=== PATIENT | female | born 1950 | race Caucasian/White ===

== ENCOUNTER 2020-06-30 16:17 | Observation (INO) ==
[2020-06-30 17:56] LABS: ALANINE AMINOTRANSFERASE 26 Units/L (12-78); ALKALINE PHOSPHATASE 86 Units/L (46-116); ASPARTATE AMINO TRANSFERASE 17 Units/L (15-37); BLOOD UREA NITROGEN 15 mg/dL (7-18); CALCIUM 8.3 mg/dL (8.5-10.1); CARBON DIOXIDE 25.4 mmol/L (21-32); CHLORIDE 109 mmol/L (98-107); COR CA(FOR HYPOALB) 9.1 mg/dL (8.5-10.1); COR NA(FOR HYPERGLY) 144 mmol/L (136-145); SODIUM 143 mmol/L (136-145); TOTAL PROTEIN 6.6 g/dL (6.4-8.2); eGFR NON BLACK RACES 58 (>60)
--- NOTE | 2020-06-30 18:03 | RAD ---
HISTORY:Abdominal painStudy:Single view abdomenComparison:NoneFindings:Bowel gas pattern is nonobstructive. There is moderate retained stool in the colon. Cholecystectomy clips noted. No renal calculi identified. There are degenerative changes of the lumbosacral spine.IMPRESSION:1. No acute abnormality identified.Electronically signed by: KEVEN FRAUSTO (Jun 30, 2020 18:01:15)
[2020-06-30 18:04] LABS: BASOPHILS % (AUTO) 0.5 % (0.2-1.0); EOSINOPHILS % (AUTO) 0.6 % (0.9-2.9); HEMATOCRIT 25.2 % (36.0-47.0); HEMOGLOBIN 8.4 g/dL (12.0-16.0); LYMPHOCYTES # (AUTO) 1.4 X10^3/uL (1.3-2.9); LYMPHOCYTES % (AUTO) 19.4 % (21.0-51.0); MEAN CORPUSCULAR HGB CONC 33.2 g/dL (33.0-35.0); MEAN CORPUSCULAR VOLUME 87.4 fL (80.0-100.0); MEAN PLATELET VOLUME 9.3 fL (7.4-11.0); MONOCYTES # (AUTO) 0.6 x10^3/uL (0.3-0.8); MONOCYTES % (AUTO) 8.4 % (0.0-13.0); NEUTROPHILS # (AUTO) 5.3 x10^3/uL (2.2-4.8); NEUTROPHILS % (AUTO) 71.1 % (42.0-75.0); PLATELET COUNT 355 X10^3/uL (150.0-450.0); RED BLOOD COUNT 2.88 X10^6/uL (3.5-5.4); RED CELL DISTRIBUTION WIDTH 15.1 % (11.6-16.5); WHITE BLOOD COUNT 7.4 X10^3/uL (3.6-10.0)
[2020-06-30 18:13] LABS: ERYTHROCYTE SEDIMENTATION RATE 93 MM/HOUR (0-20)
[2020-06-30] MEDS ORDERED: NS 1000 ML 1,000 ML ONE (19:08)
[2020-06-30] MEDS ORDERED: ZOFRAN INJ 4 MG VIAL ONE (19:11)
[2020-06-30] MEDS ORDERED: MORPHINE SULFATE INJ 2 MG INJ ONE (19:11)
[2020-06-30] MEDS: NS 1000 ML 1,000 ML IV SCH (19:44)
[2020-06-30] MEDS: MORPHINE SULFATE INJ 2 MG INJ IVP PRN (19:45)
[2020-06-30] MEDS: ZOFRAN INJ 4 MG VIAL IVP PRN (19:45)
[2020-06-30] MEDS: PROTONIX INJ 40 MG VIAL IVP SCH (20:18)
[2020-06-30] MEDS: PEPCID 20 MG IV PREMIX* 20 MG/50 ML BAG IV SCH (20:18)
[2020-06-30 23:58] LABS: BILIRUBIN,URINE NEGATIVE (NEGATIVE); BLOOD/HEMOGLOBIN,URINE 1+ (NEGATIVE); GLUCOSE, URINE NEGATIVE (NEGATIVE); KETONES,URINE NEGATIVE (NEGATIVE); LEUKOCYTE ESTERASE ,URINE 2+ (NEGATIVE); NITRITES,URINE NEGATIVE (NEGATIVE); PROTEIN,URINE 1+ (NEGATIVE); UROBILINOGEN,URINE NORMAL (NORMAL)
[2020-07-01 00:17] LABS: APPEARANCE,URINE CLEAR (CLEAR); BACTERIA,URINE TRACE /HPF (NEGATIVE); COLOR,URINE YELLOW (YELLOW); SQUAMOUS EPITHELIAL CELL,UR FEW /HPF (NEGATIVE)
[2020-07-01] MEDS: NS 1000 ML 1,000 ML IV SCH ×3 (01:31→19:11)
[2020-07-01] MEDS: ZOFRAN INJ 4 MG VIAL IVP PRN (01:31)
[2020-07-01] MEDS: MORPHINE SULFATE INJ 2 MG INJ IVP PRN ×4 (01:31→20:42)
[2020-07-01 06:04] LABS: ALANINE AMINOTRANSFERASE 21 Units/L (12-78); ALBUMIN 2.6 g/dL (3.4-5.0); ALKALINE PHOSPHATASE 73 Units/L (46-116); ASPARTATE AMINO TRANSFERASE 16 Units/L (15-37); BASOPHILS % (AUTO) 0.5 % (0.2-1.0); BLOOD UREA NITROGEN 15 mg/dL (7-18); CALCIUM 8.2 mg/dL (8.5-10.1); CARBON DIOXIDE 24.1 mmol/L (21-32); CHLORIDE 110 mmol/L (98-107); COR CA(FOR HYPOALB) 9.3 mg/dL (8.5-10.1); CREATININE 0.93 mg/dL (0.55-1.02); EOSINOPHILS # (AUTO) 0.1 x10^3/uL (0.0-0.2); HEMATOCRIT 23.6 % (36.0-47.0); HEMOGLOBIN 7.7 g/dL (12.0-16.0); LYMPHOCYTES # (AUTO) 1.6 X10^3/uL (1.3-2.9); LYMPHOCYTES % (AUTO) 26.9 % (21.0-51.0); MEAN CORPUSCULAR HEMOGLOBIN 28.4 pg (27.0-34.0); MEAN CORPUSCULAR HGB CONC 32.6 g/dL (33.0-35.0); MEAN CORPUSCULAR VOLUME 87.2 fL (80.0-100.0); MEAN PLATELET VOLUME 8.9 fL (7.4-11.0); MONOCYTES # (AUTO) 0.6 x10^3/uL (0.3-0.8); MONOCYTES % (AUTO) 9.3 % (0.0-13.0); NEUTROPHILS # (AUTO) 3.7 x10^3/uL (2.2-4.8); NEUTROPHILS % (AUTO) 61.3 % (42.0-75.0); PLATELET COUNT 303 X10^3/uL (150.0-450.0); RED BLOOD COUNT 2.71 X10^6/uL (3.5-5.4); RED CELL DISTRIBUTION WIDTH 15.5 % (11.6-16.5); SODIUM 143 mmol/L (136-145); TOTAL PROTEIN 5.8 g/dL (6.4-8.2); eGFR NON BLACK RACES > 60 (>60)
[2020-07-01 06:48] VITALS: BMI 29.2
[2020-07-01] MEDS: PROTONIX INJ 40 MG VIAL IVP SCH ×2 (08:22→20:42)
[2020-07-01] MEDS: PEPCID 20 MG IV PREMIX* 20 MG/50 ML BAG IV SCH ×2 (08:22→20:42)
[2020-07-01] MEDS: INVANZ INJ 1 GM VIAL 1 GM in NS 100 ML IV + SPIKE MINIBAG* 100 ML IV SCH (11:01)
--- NOTE | 2020-07-01 14:14 | DR.H&P ---
H&P - History & Physical for Day of: H&P Date: 06/30/20 - Chief Complaint Chief Complaint: BLOOD IN STOOL, SOB, WEAKNESS, NAUSEA - History of Present Illness History of Present Illness: IS A 70 YEAR OLD PATIENT OF [facility]. SHE PRESENTED A DIRECT ADMISSION TO THE HOSPITAL UNDER OUR SERVICES DUE TO COMPLAINTS OF PASSING BLOOD IN THE STOOL X 1 WEEK. PATIENT REPORTS THAT STOOL HAD BRIGHT RED BLOOD INITIALLY, BUT IS NOW BLACK. SHE DENIES ABDOMINAL PAIN, BUT DOES ADMIT TO SHORTNESS OF BREATH, WEAKNESS, AND NAUSEA WITHOUT VOMITING. HER PMH INCLUDES: GERD, PUD, RHEUMATOID ARTHRITIS, HYPOTHYROIDISM, ANXIETY, DEPRESSION, APPENDECTOMY, CHOLECYSTECTOMY, HYSTERECTOMY, AND NASAL SURGERY. SHE IS A CURRENT EVERYDAY SMOKER. ON ARRIVAL TO THE HOSPITAL, VITALS WERE 98.7-98-16-100%-100/55. LABS WERE OBTAINED. ABNORMAL LAB VALUES INCLUDE THE FOLLOWING: RBC 2.88, HGB 8.4, HCT 25.2, CHLORIDE 109, GLUCOSE 124, CALCIUM 8.3, CRP 7.70, ALBUMIN 3.0. URINALYSIS WAS OBTAINED AND REVEALED: WBC 30-50, RBC 3-5, LEUKOCYTES 2+, BACTERIA TRACE, PROTEIN 1+. A URINE CULTURE WAS SET UP. COVID-19 NEGATIVE. A KUB WAS OBTAINED AND WAS NEGATIVE FOR ACUTE ABNORMALITY. SHE WAS STARTED ON NORMAL SALINE AT 125 ML/HR, PEPCID 20MG IV Q12H, PROTONIX 40MG IV BID, ZOFRAN 4MG IV Q4H PRN NAUSEA, MORPHINE 2MG IV Q4H PRN PAIN, AND INVANZ 1G IV DAILY FOR UTI. WE WILL CONSULT WITH FOR POSSIBLE ENDOSCOPY. OTHERWISE, WE PLAN TO FOLLOW UP WITH AM LABS AND CONTINUE TO MONITOR. TIME SPENT ON CLINICAL ASSESSMENT, REVIEWING LABS AND IMAGING, DECISION MAKING, DOCUMENTATION WAS GREATER THAN 75 MINUTES. - Past Medical History Past Medical History: Anxiety, Arthritis, Depression, GERD, Hypothyroidism, PUD Additional Medical History: LUPUS - Past Surgical History Surgical History: Appendectomy, Cholecystectomy, Hysterectomy - Family History Family Medical History: Diabetes Mellitus, Cancer, [place], Coronary Artery Disease, Sudden Cardiac , Hypertension - Social History Does patient currently use any type of tobacco product: Yes Have you used tobacco products in the last 12 months: Yes Type of Tobacco Use: Cigarettes Alcohol Use: None Drug Use: None - Medications Home Medications: nitrofurantoin [From Macrobid] Allergy (Intermediate, Verified 06/30/20 19:30) NAUSEA CONTINUE taking the following medications biotin 5 mg PO DAILY 07/01/20 [History] dexlansoprazole [Dexilant] 60 mg PO DAILY 07/01/20 [History] diclofenac sodium 2 g TOPICAL QID 07/01/20 [History] famotidine 20 mg PO BID 07/01/20 [History] furosemide [Lasix] 40 mg PO DAILY PRN 07/01/20 [History] hydrocodone-acetaminophen 1 tab PO Q6H PRN 07/01/20 [History] levothyroxine 88 mcg PO DAILY 07/01/20 [History] montelukast 10 mg PO DAILY 07/01/20 [History] morphine 15 mg PO Q8H PRN 07/01/20 [History] phentermine [Adipex-P] 37.5 mg PO DAILY 07/01/20 [History] potassium chloride 10 meq PO DAILY 07/01/20 [History] prednisone 5 mg PO DAILY PRN 07/01/20 [History] pregabalin 50 mg PO BID 07/01/20 [History] promethazine [Phenergan] 25 mg PO Q6H PRN 07/01/20 [History] tofacitinib [Xeljanz XR] 11 mg PO DAILY 07/01/20 [History] topiramate 100 mg PO BID 07/01/20 [History] venlafaxine 150 mg PO DAILY 07/01/20 [History] - Review of Systems Constitutional: Weakness. denies: Fever, Chills Eyes: No Symptoms Reported ENT: No Symptoms Reported Respiratory: No Symptoms Reported, Shortness of Breath, SOB with Excertion Cardiovascular: No Symptoms Reported Gastrointestinal: No Symptoms Reported, See HPI, Nausea Genitourinary: No Symptoms Reported Musculoskeletal: No Symptoms Reported Skin: No Symptoms Reported Neurological: Weakness - Physical Exam Vital Signs: Temperature 99.0 F Pulse Rate [Left Brachial] 93 Respiratory Rate 18 Blood Pressure [Left Arm] 117/57 O2 Sat by Pulse Oximetry 97 Oriented: Normal Eyes: Normal Ear: Normal Nose: Normal Throat: Normal Respiratory: Diminished Throughout Cardiovascular: Normal. negative: S3, S4, Murmur : Normal Auscultation: Bowel Sounds: Normal Palpation: Normal Tenderness: Normal Skin: Normal Musculoskeletal: Normal Psychiatric: Normal Mood Description: Calm Affect: Normal Speech Pattern: Clear - Assessment/Plan (1) GI bleed Qualifiers: GI bleed type/associated pathology: unspecified gastrointestinal hemorrhage type Qualified Code(s): K92.2 - Gastrointestinal hemorrhage, unspecified Status: Acute (2) Anemia Qualifiers: Anemia type: iron deficiency Iron deficiency anemia type: chronic blood loss Qualified Code(s): D50.0 - Iron deficiency anemia secondary to blood loss (chronic) Status: Acute Plan: ADMIT, GASTOENTEROLOGY CONSULT, NORMAL SALINE AT 125 ML/HR, PEPCID 20MG IV Q12H, PROTONIX 40MG IV BID, ZOFRAN 4MG IV Q4H PRN NAUSEA, MORPHINE 2MG IV Q4H PRN PAIN, AND INVANZ 1G IV DAILY FOR UTI. MONITOR H&H - Allergies Allergies/Adverse Reactions: Allergies Allergy/AdvReac Type Severity Reaction Status Date / Time nitrofurantoin Allergy Intermediate NAUSEA Verified 06/30/20 19:30 [From Macrobid]
[2020-07-01 16:54] LABS: HEMATOCRIT 22.2 % (36.0-47.0); HEMOGLOBIN 7.4 g/dL (12.0-16.0)
--- NOTE | 2020-07-01 18:12 | DR.CONSULT ---
Consult - Consultation for Day of: Date: 07/01/20 - Chief Complaint Chief Complaint: Patient referred for GI Beed and abdominal pain, Patient with complaints of nausea, epigastric pain and melena. - History of Present Illness History of Present Illness: Patient is a 70 yo female who was referred for GI Beed and abdominal pain, Patient with complaints of nausea, epigastric pain and melena. Patient denies dysphagia, dyspepsia, vomiting, constipation, diarrhea. Patient states she was having hematochezia prior melena. Last colon was a few years ago in [facility] 3 polyps. Hgb 7.7, Hct 23.6, Plt 303, BUN 15, Creatinine 0.93, T. Bili 0.20, AST 16, ALT 21, ALP 73 - Past Surgical History Surgical History: Appendectomy, Cholecystectomy, Hysterectomy - Family History Family Medical History: Diabetes Mellitus, Cancer, [place], Coronary Artery Disease, Sudden Cardiac , Hypertension - Social History Does patient currently use any type of tobacco product: Yes Have you used tobacco products in the last 12 months: Yes Type of Tobacco Use: Cigarettes Alcohol Use: None Drug Use: None - Medications Home Medications: nitrofurantoin [From Macrobid] Allergy (Intermediate, Verified 06/30/20 19:30) NAUSEA CONTINUE taking the following medications biotin 5 mg PO DAILY 07/01/20 [History] dexlansoprazole [Dexilant] 60 mg PO DAILY 07/01/20 [History] diclofenac sodium 2 g TOPICAL QID 07/01/20 [History] famotidine 20 mg PO BID 07/01/20 [History] furosemide [Lasix] 40 mg PO DAILY PRN 07/01/20 [History] hydrocodone-acetaminophen 1 tab PO Q6H PRN 07/01/20 [History] levothyroxine 88 mcg PO DAILY 07/01/20 [History] montelukast 10 mg PO DAILY 07/01/20 [History] morphine 15 mg PO Q8H PRN 07/01/20 [History] phentermine [Adipex-P] 37.5 mg PO DAILY 07/01/20 [History] potassium chloride 10 meq PO DAILY 07/01/20 [History] prednisone 5 mg PO DAILY PRN 07/01/20 [History] pregabalin 50 mg PO BID 07/01/20 [History] promethazine [Phenergan] 25 mg PO Q6H PRN 07/01/20 [History] tofacitinib [Xeljanz XR] 11 mg PO DAILY 07/01/20 [History] topiramate 100 mg PO BID 07/01/20 [History] venlafaxine 150 mg PO DAILY 07/01/20 [History] - Review of Systems Gastrointestinal: Nausea, Abdominal Pain (epigastric), Melena. denies: Vomiting, Diarrhea, Constipation, Hematochezia - Physical Exam Vital Signs: Temperature 98.6 F Pulse Rate [Left Brachial] 85 Respiratory Rate 18 Blood Pressure [Left Arm] 102/54 O2 Sat by Pulse Oximetry 94 Oriented: Normal Eyes: Normal Ear: Normal Nose: Normal Throat: Normal Respiratory: Clear Throughout Cardiovascular: Normal Auscultation: Bowel Sounds: Normal Palpation: Normal, Other (no distention). negative: Spleen Enlarged, Liver Enlarged, Mass Pulsatile Tenderness: Epigastric Skin: Normal Musculoskeletal: Normal Psychiatric: Normal Mood Description: Calm Affect: Normal Speech Pattern: Clear, Appropriate - Plan Plan: Assessment. 1. Anemia, Melena r/o upper GI Loss. Plan. 1. Protonix IV, Monitor Hgb, Transfuse as needed, EGD on , Hemoccult. Plan reviewed with Dr. Guerrero - Allergies Allergies/Adverse Reactions: Allergies Allergy/AdvReac Type Severity Reaction Status Date / Time nitrofurantoin Allergy Intermediate NAUSEA Verified 06/30/20 19:30 [From Macrobid]
[2020-07-01] MEDS: NICOTINE PATCH TD SCH (22:00)
[2020-07-02] MEDS: MORPHINE SULFATE INJ 2 MG INJ IVP PRN ×2 (00:22→04:30)
[2020-07-02] MEDS: NS 1000 ML 1,000 ML IV SCH ×2 (03:00→18:10)
[2020-07-02] MEDS: ZOFRAN INJ 4 MG VIAL IVP PRN ×2 (05:19→21:33)
[2020-07-02 06:19] LABS: BASOPHILS % (AUTO) 0.5 % (0.2-1.0); EOSINOPHILS # (AUTO) 0.1 x10^3/uL (0.0-0.2); EOSINOPHILS % (AUTO) 1.9 % (0.9-2.9); HEMATOCRIT 20.1 % (36.0-47.0); LYMPHOCYTES # (AUTO) 1.3 X10^3/uL (1.3-2.9); LYMPHOCYTES % (AUTO) 23.3 % (21.0-51.0); MEAN CORPUSCULAR HEMOGLOBIN 28.7 pg (27.0-34.0); MEAN CORPUSCULAR HGB CONC 33.3 g/dL (33.0-35.0); MEAN CORPUSCULAR VOLUME 86.1 fL (80.0-100.0); MEAN PLATELET VOLUME 8.8 fL (7.4-11.0); MONOCYTES # (AUTO) 0.6 x10^3/uL (0.3-0.8); MONOCYTES % (AUTO) 10.2 % (0.0-13.0); NEUTROPHILS # (AUTO) 3.6 x10^3/uL (2.2-4.8); NEUTROPHILS % (AUTO) 64.1 % (42.0-75.0); PLATELET COUNT 267 X10^3/uL (150.0-450.0); RED BLOOD COUNT 2.33 X10^6/uL (3.5-5.4); RED CELL DISTRIBUTION WIDTH 14.9 % (11.6-16.5); WHITE BLOOD COUNT 5.6 X10^3/uL (3.6-10.0)
[2020-07-02 06:21] LABS: HEMOGLOBIN 6.7 g/dL (12.0-16.0)
[2020-07-02 06:26] LABS: ALANINE AMINOTRANSFERASE 22 Units/L (12-78); ALBUMIN 2.4 g/dL (3.4-5.0); ALKALINE PHOSPHATASE 64 Units/L (46-116); ASPARTATE AMINO TRANSFERASE 17 Units/L (15-37); BLOOD UREA NITROGEN 9 mg/dL (7-18); CALCIUM 8.2 mg/dL (8.5-10.1); CARBON DIOXIDE 23.1 mmol/L (21-32); CHLORIDE 111 mmol/L (98-107); COR CA(FOR HYPOALB) 9.5 mg/dL (8.5-10.1); CREATININE 0.79 mg/dL (0.55-1.02); SODIUM 142 mmol/L (136-145); TOTAL PROTEIN 5.4 g/dL (6.4-8.2); eGFR NON BLACK RACES > 60 (>60)
[2020-07-02] MEDS ORDERED: PHENERGAN TAB 25 MG PO PRN (08:11)
[2020-07-02] MEDS ORDERED: M.S. CONTIN 15 MG (EXTENDED RELEASE) PO PRN (08:11)
[2020-07-02] MEDS: NORCO 10/325 TAB PO PRN ×3 (08:14→23:13)
[2020-07-02] MEDS: NICOTINE PATCH TD SCH (08:15)
[2020-07-02] MEDS: PROTONIX INJ 40 MG VIAL IVP SCH (08:17)
[2020-07-02] MEDS: PEPCID 20 MG IV PREMIX* 20 MG/50 ML BAG IV SCH ×2 (08:17→20:22)
[2020-07-02] MEDS ORDERED: LYRICA CAP 50 mg PO SCH (09:00)
[2020-07-02] MEDS ORDERED: BIOTIN 5 MG PO SCH (09:00)
[2020-07-02] MEDS: INVANZ INJ 1 GM VIAL 1 GM in NS 100 ML IV + SPIKE MINIBAG* 100 ML IV SCH (09:44)
[2020-07-02] MEDS: EFFEXOR XR 150 MG CAP 24-HR PO SCH (10:51)
[2020-07-02] MEDS: [UNRECOGNIZED DRUG - OTHER] PO SCH (10:51)
[2020-07-02] MEDS: DEXLANSOPRAZOLE PO SCH (10:51)
[2020-07-02] MEDS: SYNTHROID 88 mcg TAB PO SCH (10:51)
[2020-07-02] MEDS: MICRO K EXTEN CAP 10 MEQ PO SCH (10:51)
[2020-07-02] MEDS: SINGULAIR TAB 10 MG PO SCH (10:52)
[2020-07-02] MEDS: TOPAMAX TAB 100 MG PO SCH ×2 (10:52→20:22)
[2020-07-02] MEDS: VOLTAREN 1 % GEL MULTI DOSE TUBE TOP SCH ×4 (10:56→20:21)
[2020-07-02] MEDS: PHENERGAN INJ 25 MG IM PRN ×2 (10:56→22:12)
[2020-07-02] MEDS ORDERED: NS 250 ML IV 250 ML IV ONE ×2 (11:05→14:56)
[2020-07-02] MEDS ORDERED: BENADRYL INJ 50 MG VIAL IVP ONE (11:11)
[2020-07-02] MEDS ORDERED: TYLENOL 325 MG TAB PO ONE ×2 (11:11→11:13)
[2020-07-02] MEDS ORDERED: BENADRYL INJ 50 MG VIAL ONE (11:13)
--- NOTE | 2020-07-02 11:17 | PCM.PROG ---
Progress Note - Progress Note for Day of Date of Exam: 07/01/20 - Subjective Subjective: WAS ADMITTED FOR TREATMENT OF A GI BLEED, ANEMIA, AND GENERALIZED WEAKNESS. TODAY, SHE IS ALERT AND ORIENTED, LYING IN BED ON MORNING ROUNDS. SHE CONTINUES WITH COMPLAINTS OF DARK, TARRY STOOLS. SHE ALSO REPORTS GENERALIZED PAIN. ON EXAMINATION, HEART IS REGULAR IN RATE AND RHYTHM. BILATERAL LUNGS ARE NOTED WITH DIMINISHED LUNG SOUNDS THROUGHOUT. ABDOMEN IS ROUND, SOFT, AND NON-TENDER WITH NORMAL BOWEL SOUNDS NOTED IN ALL QUADRANTS. HER VITALS THIS MORNING ARE: 99.0-93-12-97%-117/57. LABS WERE OBTAINED. ABNORMAL LAB VALUES INCLUDE THE FOLLOWING: RBC 2.71, HGB 7.7, HCT 23.6, CHLORIDE 110, CALCIUM 8.2, TOTAL PROTEIN 5.8, ALBUMIN 2.6. URINE CULTURE IS PENDING. STOOL IS POSITIVE FOR OCCULT BLOOD. SHE IS CURRENTLY RECEIVING: NORMAL SALINE AT 125 ML/HR, PEPCID 20MG IV Q12H, PROTONIX 40MG IV BID, ZOFRAN 4MG IV Q4H PRN NAUSEA, MORPHINE 2MG IV Q4H PRN PAIN, AND INVANZ 1G IV DAILY FOR UTI. WILL CONSULT WITH PATIENT TODAY. OTHERWISE, WE WILL CONTINUE WITH CURRENT PLAN OF CARE AND CONTINUE TO MONITOR. WE WILL OBTAIN A H&H EVERY 12 HOURS. OTHERWISE, WE WILL FOLLOW UP WITH AM LABS AND CONTINUE TO MONITOR. TIME SPENT ON CLINICAL ASSESSMENT, REVIEWING LABS AND IMAGING, DECISION MAKING, DOCUMENTATION WAS GREATER THAN 45 MINUTES. - Past Medical Family Social History Past Med/Fam/Surg Hx: No changes since H&P Allergies: Allergies nitrofurantoin [From Macrobid] Allergy (Intermediate, Verified 06/30/20 19:30) NAUSEA - Review of Systems ROS: No change since H&P - Vital Signs and I&O's Vital Signs: Temperature 98.6 F Pulse Rate [Left Brachial] 83 Respiratory Rate 20 Blood Pressure [Left Arm] 111/65 O2 Sat by Pulse Oximetry 98 Intake and Output: Intake & Output 06/29/20 06/30/20 07/01/20 07/02/20 11:59 11:59 11:59 11:59 Intake Total 1380 / 1380 4512 / 4512 Output Total 250 / 250 Balance 1130 / 1130 4512 / 4512 - Physical Exam Oriented: Normal Eyes: Normal Ear: Normal Nose: Normal Throat: Normal Respiratory: Normal, Diminished Cardiovascular: Normal. negative: S3, S4, Murmur : Normal Auscultation: Bowel Sounds: Normal Palpation: Normal Tenderness: Normal Skin: Normal Musculoskeletal: Normal Psychiatric: Normal Mood Description: Calm Affect: Normal Speech Pattern: Clear - Laboratory and Diagnostics Result Diagrams: 07/02/20 05:38 07/02/20 05:38 Labs: 06/30/20 23:48 Urine,Clean Catch Urine Culture - Preliminary Laboratory WBC 5.6 X10^3/uL (3.6-10.0) 07/02/20 05:38 RBC 2.33 X10^6/uL (3.5-5.4) L 07/02/20 05:38 Hgb 6.7 g/dL (12.0-16.0) L* 07/02/20 05:38 Hct 20.1 % (36.0-47.0) L 07/02/20 05:38 MCV 86.1 fL (80.0-100.0) 07/02/20 05:38 MCH 28.7 pg (27.0-34.0) 07/02/20 05:38 MCHC 33.3 g/dL (33.0-35.0) 07/02/20 05:38 RDW 14.9 % (11.6-16.5) 07/02/20 05:38 Plt Count 267 X10^3/uL (150.0-450.0) 07/02/20 05:38 MPV 8.8 fL (7.4-11.0) 07/02/20 05:38 Neut % (Auto) 64.1 % (42.0-75.0) 07/02/20 05:38 Lymph % (Auto) 23.3 % (21.0-51.0) 07/02/20 05:38 [place] % (Auto) 10.2 % (0.0-13.0) 07/02/20 05:38 Eos % (Auto) 1.9 % (0.9-2.9) 07/02/20 05:38 Baso % (Auto) 0.5 % (0.2-1.0) 07/02/20 05:38 Neut # (Auto) 3.6 x10^3/uL (2.2-4.8) 07/02/20 05:38 Lymph # (Auto) 1.3 X10^3/uL (1.3-2.9) 07/02/20 05:38 [place] # (Auto) 0.6 x10^3/uL (0.3-0.8) 07/02/20 05:38 Eos # (Auto) 0.1 x10^3/uL (0.0-0.2) 07/02/20 05:38 Baso # (Auto) 0.0 X10^3/uL (0.0-0.1) 07/02/20 05:38 Absolute Nucleated RBC 0.1 /100WBC 07/02/20 05:38 ESR 93 MM/HOUR (0-20) H 06/30/20 17:23 Sodium 142 mmol/L (136-145) 07/02/20 05:38 Corrected Sodium TNP 07/02/20 05:38 Potassium 3.3 mmol/L (3.5-5.1) L 07/02/20 05:38 Chloride 111 mmol/L (98-107) H 07/02/20 05:38 Carbon Dioxide 23.1 mmol/L (21-32) 07/02/20 05:38 BUN 9 mg/dL (7-18) 07/02/20 05:38 Creatinine 0.79 mg/dL (0.55-1.02) 07/02/20 05:38 Est GFR (MDRD) Af Amer > 60 (>60) 07/02/20 05:38 Est GFR (MDRD) Non-Af > 60 (>60) 07/02/20 05:38 Glucose 104 mg/dL (65-99) H 07/02/20 05:38 Calcium 8.2 mg/dL (8.5-10.1) L 07/02/20 05:38 Corrected Calcium 9.5 mg/dL (8.5-10.1) 07/02/20 05:38 Total Bilirubin 0.20 mg/dL (0.2-1.0) 07/02/20 05:38 AST 17 Units/L (15-37) 07/02/20 05:38 ALT 22 Units/L (12-78) 07/02/20 05:38 Alkaline Phosphatase 64 Units/L (46-116) 07/02/20 05:38 C-Reactive Protein 7.70 mg/L (0-3.0) H 06/30/20 17:23 Total Protein 5.4 g/dL (6.4-8.2) L 07/02/20 05:38 Albumin 2.4 g/dL (3.4-5.0) L 07/02/20 05:38 Globulin 3.0 g/dL (2.5-4.5) 07/02/20 05:38 Albumin/Globulin Ratio 0.8 Ratio (1.1-2.1) L 07/02/20 05:38 Specimen Type Clean catch urine 06/30/20 23:48 Urine Color Yellow (YELLOW) 06/30/20 23:48 Urine Appearance Clear (CLEAR) 06/30/20 23:48 Urine pH 6.0 (5.0 - 8.0) 06/30/20 23:48 Ur Specific [place] 1.020 (1.000-1.030) 06/30/20 23:48 Urine Protein 1+ (NEGATIVE) 06/30/20 23:48 Urine Glucose (UA) Negative (NEGATIVE) 06/30/20 23:48 Urine Ketones Negative (NEGATIVE) 06/30/20 23:48 Urine Occult Blood 1+ (NEGATIVE) 06/30/20 23:48 Urine Nitrite Negative (NEGATIVE) 06/30/20 23:48 Urine Bilirubin Negative (NEGATIVE) 06/30/20 23:48 Urine Urobilinogen Normal (NORMAL) 06/30/20 23:48 Ur Leukocyte Esterase 2+ (NEGATIVE) 06/30/20 23:48 Urine RBC 3-5 /HPF (0-3) A 06/30/20 23:48 Urine WBC 30-50 /HPF (0-5) A 06/30/20 23:48 Ur Squamous Epith Cells Few /HPF (NEGATIVE) 06/30/20 23:48 Urine Bacteria Trace /HPF (NEGATIVE) 06/30/20 23:48 Ur Culture Indicated? Yes/culture set up 06/30/20 23:48 Stool Description Fob tube 07/01/20 14:45 Stl Occult Blood (IFOB) Positive (NEGATIVE) A 07/01/20 14:45 Stool H. pylori Ag Negative (NEGATIVE) 07/01/20 14:46 Blood Type A NEGATIVE 07/01/20 09:04 Antibody Screen Negative 07/01/20 09:04 Crossmatch See Detail 07/01/20 09:04 - Plan (1) GI bleed Status: Acute Qualifiers: GI bleed type/associated pathology: unspecified gastrointestinal hemorrhage type Qualified Code(s): K92.2 - Gastrointestinal hemorrhage, unspecified Plan: GASTOENTEROLOGY CONSULT, NORMAL SALINE AT 125 ML/HR, PEPCID 20MG IV Q12H, PROTONIX 40MG IV BID, ZOFRAN 4MG IV Q4H PRN NAUSEA, MORPHINE 2MG IV Q4H PRN PAIN, AND INVANZ 1G IV DAILY FOR UTI. MONITOR H&H (2) Anemia Status: Acute Qualifiers: Anemia type: iron deficiency Iron deficiency anemia type: chronic blood los s Qualified Code(s): D50.0 - Iron deficiency anemia secondary to blood loss (chronic)
--- NOTE | 2020-07-02 12:08 | PCM.PROG ---
Progress Note - Progress Note for Day of Date of Exam: 07/02/20 - Subjective Subjective: WAS ADMITTED FOR TREATMENT OF A GI BLEED, ANEMIA, AND GENERALIZED WEAKNESS. TODAY, SHE IS ALERT AND ORIENTED, LYING IN BED ON MORNING ROUNDS. SHE CONTINUES WITH COMPLAINTS OF DARK, TARRY STOOLS. SHE ALSO REPORTS GENERALIZED PAIN. ON EXAMINATION, HEART IS REGULAR IN RATE AND RHYTHM. BILATERAL LUNGS ARE NOTED WITH DIMINISHED LUNG SOUNDS THROUGHOUT. ABDOMEN IS ROUND, SOFT, AND NON-TENDER WITH NORMAL BOWEL SOUNDS NOTED IN ALL QUADRANTS. HER VITALS THIS MORNING ARE: 98.6-83-18-98%-111/65. LABS WERE OBTAINED. ABNORMAL LAB VALUES INCLUDE THE FOLLOWING: RBC 2.33, HGB 6.7, HCT 20.1, POTASSIUM 3.3, CHLORIDE 111, GLUCOSE 104, CALCIUM 8.2, TOTAL PROTEIN 5.4, ALBUMIN 2.4. URINE CULTURE IS PENDING. STOOL IS POSITIVE FOR OCCULT BLOOD. SHE IS CURRENTLY RECEIVING: NORMAL SALINE AT 125 ML/HR, PEPCID 20MG IV Q12H, PROTONIX 40MG IV BID, ZOFRAN 4MG IV Q4H PRN NAUSEA, MORPHINE 2MG IV Q4H PRN PAIN, AND INVANZ 1G IV DAILY FOR UTI. CONSULTED WITH PATIENT AND PLANS FOR AN EGD TOMORROW. TODAY, WE WILL TRANSFUSE TWO UNITS OF PRBC. OTHERWISE, WE WILL CONTINUE WITH CURRENT PLAN OF CARE AND CONTINUE TO MONITOR. TIME SPENT ON CLINICAL ASSESSMENT, REVIEWING LABS AND IMAGING, DECISION MAKING, DOCUMENTATION WAS GREATER THAN 45 MINUTES. - Past Medical Family Social History Past Med/Fam/Surg Hx: No changes since H&P Allergies: Allergies nitrofurantoin [From Macrobid] Allergy (Intermediate, Verified 06/30/20 19:30) NAUSEA - Review of Systems ROS: No change since H&P - Vital Signs and I&O's Vital Signs: Temperature 98.6 F Pulse Rate [Left Brachial] 83 Respiratory Rate 20 Blood Pressure [Left Arm] 111/65 O2 Sat by Pulse Oximetry 98 Intake and Output: Intake & Output 06/30/20 07/01/20 07/02/20 07/03/20 11:59 11:59 11:59 11:59 Intake Total 1380 / 1380 4512 / 4512 Output Total 250 / 250 Balance 1130 / 1130 4512 / 4512 - Physical Exam Oriented: Normal Eyes: Normal Ear: Normal Nose: Normal Throat: Normal Respiratory: Normal, Diminished Cardiovascular: Normal. negative: S3, S4, Murmur : Normal Auscultation: Bowel Sounds: Normal Palpation: Normal Tenderness: Normal Skin: Normal Musculoskeletal: Normal Psychiatric: Normal Mood Description: Calm Affect: Normal Speech Pattern: Clear - Laboratory and Diagnostics Result Diagrams: 07/02/20 05:38 07/02/20 05:38 Labs: 06/30/20 23:48 Urine,Clean Catch Urine Culture - Preliminary Laboratory WBC 5.6 X10^3/uL (3.6-10.0) 07/02/20 05:38 RBC 2.33 X10^6/uL (3.5-5.4) L 07/02/20 05:38 Hgb 6.7 g/dL (12.0-16.0) L* 07/02/20 05:38 Hct 20.1 % (36.0-47.0) L 07/02/20 05:38 MCV 86.1 fL (80.0-100.0) 07/02/20 05:38 MCH 28.7 pg (27.0-34.0) 07/02/20 05:38 MCHC 33.3 g/dL (33.0-35.0) 07/02/20 05:38 RDW 14.9 % (11.6-16.5) 07/02/20 05:38 Plt Count 267 X10^3/uL (150.0-450.0) 07/02/20 05:38 MPV 8.8 fL (7.4-11.0) 07/02/20 05:38 Neut % (Auto) 64.1 % (42.0-75.0) 07/02/20 05:38 Lymph % (Auto) 23.3 % (21.0-51.0) 07/02/20 05:38 [place] % (Auto) 10.2 % (0.0-13.0) 07/02/20 05:38 Eos % (Auto) 1.9 % (0.9-2.9) 07/02/20 05:38 Baso % (Auto) 0.5 % (0.2-1.0) 07/02/20 05:38 Neut # (Auto) 3.6 x10^3/uL (2.2-4.8) 07/02/20 05:38 Lymph # (Auto) 1.3 X10^3/uL (1.3-2.9) 07/02/20 05:38 [place] # (Auto) 0.6 x10^3/uL (0.3-0.8) 07/02/20 05:38 Eos # (Auto) 0.1 x10^3/uL (0.0-0.2) 07/02/20 05:38 Baso # (Auto) 0.0 X10^3/uL (0.0-0.1) 07/02/20 05:38 Absolute Nucleated RBC 0.1 /100WBC 07/02/20 05:38 ESR 93 MM/HOUR (0-20) H 06/30/20 17:23 Sodium 142 mmol/L (136-145) 07/02/20 05:38 Corrected Sodium TNP 07/02/20 05:38 Potassium 3.3 mmol/L (3.5-5.1) L 07/02/20 05:38 Chloride 111 mmol/L (98-107) H 07/02/20 05:38 Carbon Dioxide 23.1 mmol/L (21-32) 07/02/20 05:38 BUN 9 mg/dL (7-18) 07/02/20 05:38 Creatinine 0.79 mg/dL (0.55-1.02) 07/02/20 05:38 Est GFR (MDRD) Af Amer > 60 (>60) 07/02/20 05:38 Est GFR (MDRD) Non-Af > 60 (>60) 07/02/20 05:38 Glucose 104 mg/dL (65-99) H 07/02/20 05:38 Calcium 8.2 mg/dL (8.5-10.1) L 07/02/20 05:38 Corrected Calcium 9.5 mg/dL (8.5-10.1) 07/02/20 05:38 Total Bilirubin 0.20 mg/dL (0.2-1.0) 07/02/20 05:38 AST 17 Units/L (15-37) 07/02/20 05:38 ALT 22 Units/L (12-78) 07/02/20 05:38 Alkaline Phosphatase 64 Units/L (46-116) 07/02/20 05:38 C-Reactive Protein 7.70 mg/L (0-3.0) H 06/30/20 17:23 Total Protein 5.4 g/dL (6.4-8.2) L 07/02/20 05:38 Albumin 2.4 g/dL (3.4-5.0) L 07/02/20 05:38 Globulin 3.0 g/dL (2.5-4.5) 07/02/20 05:38 Albumin/Globulin Ratio 0.8 Ratio (1.1-2.1) L 07/02/20 05:38 Specimen Type Clean catch urine 06/30/20 23:48 Urine Color Yellow (YELLOW) 06/30/20 23:48 Urine Appearance Clear (CLEAR) 06/30/20 23:48 Urine pH 6.0 (5.0 - 8.0) 06/30/20 23:48 Ur Specific [place] 1.020 (1.000-1.030) 06/30/20 23:48 Urine Protein 1+ (NEGATIVE) 06/30/20 23:48 Urine Glucose (UA) Negative (NEGATIVE) 06/30/20 23:48 Urine Ketones Negative (NEGATIVE) 06/30/20 23:48 Urine Occult Blood 1+ (NEGATIVE) 06/30/20 23:48 Urine Nitrite Negative (NEGATIVE) 06/30/20 23:48 Urine Bilirubin Negative (NEGATIVE) 06/30/20 23:48 Urine Urobilinogen Normal (NORMAL) 06/30/20 23:48 Ur Leukocyte Esterase 2+ (NEGATIVE) 06/30/20 23:48 Urine RBC 3-5 /HPF (0-3) A 06/30/20 23:48 Urine WBC 30-50 /HPF (0-5) A 06/30/20 23:48 Ur Squamous Epith Cells Few /HPF (NEGATIVE) 06/30/20 23:48 Urine Bacteria Trace /HPF (NEGATIVE) 06/30/20 23:48 Ur Culture Indicated? Yes/culture set up 06/30/20 23:48 Stool Description Fob tube 07/01/20 14:45 Stl Occult Blood (IFOB) Positive (NEGATIVE) A 07/01/20 14:45 Stool H. pylori Ag Negative (NEGATIVE) 07/01/20 14:46 Blood Type A NEGATIVE 07/01/20 09:04 Antibody Screen Negative 07/01/20 09:04 Crossmatch See Detail 07/01/20 09:04 - Plan (1) GI bleed Status: Acute Qualifiers: GI bleed type/associated pathology: unspecified gastrointestinal hemorrhage type Qualified Code(s): K92.2 - Gastrointestinal hemorrhage, unspecified Plan: EGD TOMORROW, TRANSFUSE 2 UNITS PRBC, NORMAL SALINE AT 125 ML/HR, PEPCID 20MG IV Q12H, PROTONIX 40MG IV BID, ZOFRAN 4MG IV Q4H PRN NAUSEA, MORPHINE 2MG IV Q4H PRN PAIN, AND INVANZ 1G IV DAILY FOR UTI. MONITOR H&H (2) Anemia Status: Acute Qualifiers: Anemia type: iron deficiency Iron deficiency anemia type: chronic blood l oss Qualified Code(s): D50.0 - Iron deficiency anemia secondary to blood loss (chronic) Plan: ADMIT, GASTOENTEROLOGY CONSULT, NORMAL SALINE AT 125 ML/HR, PEPCID 20MG IV Q12H, PROTONIX 40MG IV BID, ZOFRAN 4MG IV Q4H PRN NAUSEA, MORPHINE 2MG IV Q4H PRN PAIN, AND INVANZ 1G IV DAILY FOR UTI. MONITOR H&H
[2020-07-03] MEDS: NS 1000 ML 1,000 ML IV SCH ×2 (01:15→13:46)
[2020-07-03 06:24] LABS: BASOPHILS % (AUTO) 0.5 % (0.2-1.0); EOSINOPHILS # (AUTO) 0.2 x10^3/uL (0.0-0.2); EOSINOPHILS % (AUTO) 2.3 % (0.9-2.9); HEMATOCRIT 28.3 % (36.0-47.0); HEMOGLOBIN 9.5 g/dL (12.0-16.0); LYMPHOCYTES # (AUTO) 2.3 X10^3/uL (1.3-2.9); LYMPHOCYTES % (AUTO) 34.4 % (21.0-51.0); MEAN CORPUSCULAR HEMOGLOBIN 29.1 pg (27.0-34.0); MEAN CORPUSCULAR HGB CONC 33.7 g/dL (33.0-35.0); MEAN CORPUSCULAR VOLUME 86.3 fL (80.0-100.0); MEAN PLATELET VOLUME 8.8 fL (7.4-11.0); MONOCYTES # (AUTO) 0.6 x10^3/uL (0.3-0.8); MONOCYTES % (AUTO) 9.1 % (0.0-13.0); NEUTROPHILS # (AUTO) 3.6 x10^3/uL (2.2-4.8); NEUTROPHILS % (AUTO) 53.7 % (42.0-75.0); PLATELET COUNT 271 X10^3/uL (150.0-450.0); RED BLOOD COUNT 3.28 X10^6/uL (3.5-5.4); RED CELL DISTRIBUTION WIDTH 14.6 % (11.6-16.5); WHITE BLOOD COUNT 6.8 X10^3/uL (3.6-10.0)
[2020-07-03 06:35] LABS: ALANINE AMINOTRANSFERASE 22 Units/L (12-78); ALBUMIN 2.6 g/dL (3.4-5.0); ALKALINE PHOSPHATASE 68 Units/L (46-116); ASPARTATE AMINO TRANSFERASE 16 Units/L (15-37); BLOOD UREA NITROGEN 6 mg/dL (7-18); CALCIUM 8.3 mg/dL (8.5-10.1); CARBON DIOXIDE 22.2 mmol/L (21-32); CHLORIDE 112 mmol/L (98-107); COR CA(FOR HYPOALB) 9.4 mg/dL (8.5-10.1); CREATININE 0.88 mg/dL (0.55-1.02); SODIUM 143 mmol/L (136-145); TOTAL PROTEIN 5.7 g/dL (6.4-8.2); eGFR NON BLACK RACES > 60 (>60)
[2020-07-03] MEDS: VOLTAREN 1 % GEL MULTI DOSE TUBE TOP SCH ×3 (10:19→13:56)
[2020-07-03] MEDS: PEPCID 20 MG IV PREMIX* 20 MG/50 ML BAG IV SCH (10:48)
[2020-07-03] MEDS: INVANZ INJ 1 GM VIAL 1 GM in NS 100 ML IV + SPIKE MINIBAG* 100 ML IV SCH (11:21)
[2020-07-03] MEDS ORDERED: MORPHINE SULFATE INJ 2 MG INJ ONE (11:37)
[2020-07-03] MEDS ORDERED: DIPRIVAN VIAL 20 ML ONE (12:20)
[2020-07-03] MEDS: NORCO 10/325 TAB PO PRN (13:30)
[2020-07-03] MEDS: DEXLANSOPRAZOLE PO SCH (13:44)
[2020-07-03] MEDS: [UNRECOGNIZED DRUG - OTHER] PO SCH (13:44)
[2020-07-03] MEDS: MICRO K EXTEN CAP 10 MEQ PO SCH (13:45)
[2020-07-03] MEDS: EFFEXOR XR 150 MG CAP 24-HR PO SCH (13:45)
[2020-07-03] MEDS: NICOTINE PATCH TD SCH ×2 (13:45→13:55)
[2020-07-03] MEDS: SYNTHROID 88 mcg TAB PO SCH (13:46)
[2020-07-03] MEDS: SINGULAIR TAB 10 MG PO SCH (13:46)
[2020-07-03] MEDS: TOPAMAX TAB 100 MG PO SCH (13:47)
[2020-07-03 15:03] VITALS: BP 134/60
[2020-07-03] MEDS ORDERED: PROTONIX TAB 40 MG PO SCH (21:00)
== END 2020-07-03 14:30 | disposition home or self-care (01) ==
LOC: MED/SURG
PROVIDERS: ADMIT Internal Medicine; ATTEND Internal Medicine
DX: R06.02 Shortness of breath; D50.0 Iron deficiency anemia secondary to blood loss (chronic); K21.00 Gastro-esophageal reflux disease with esophagitis, without bleeding; E03.8 Other specified hypothyroidism; R11.2 Nausea with vomiting, unspecified; R53.1 Weakness; M06.9 Rheumatoid arthritis, unspecified; N39.0 Urinary tract infection, site not specified; R10.84 Generalized abdominal pain; R79.82 Elevated C-reactive protein (CRP); K92.2 Gastrointestinal hemorrhage, unspecified; R79.89 Other specified abnormal findings of blood chemistry; K29.70 Gastritis, unspecified, without bleeding; K44.9 Diaphragmatic hernia without obstruction or gangrene; Z20.822 Contact with and (suspected) exposure to COVID-19